=== PATIENT | female | born 1980 | race Caucasian/White ===

== ENCOUNTER 2021-10-31 17:01 | Inpatient (IN) | payer OTHER, SELFPAY ==
[2021-10-31 17:31] VITALS: BMI 40.1
[2021-10-31 18:24] LABS: #Eosinphils 0.1 10x3/uL (0.0-0.5); #Monocytes 1.1 10x3/uL (0.0-1.1); #Neutrophils 7.8 10x3/uL (1.5-8.4); %Basophils 0.3 % (0.0-2.0); %Lymphocytes 18.2 % (18.0-47.0); %Monocytes 9.7 % (0.0-10.0); %Neutrophils 70.2 % (40.0-75.0); Hemoglobin 12.3 g/dL (12.0-15.5); Mean Corpuscular Volume 91.2 fl (81.6-98.3); Mean Platelet Volume 10.2 fl (7.4-10.4); Platelet Count 236 10x3/uL (150-450); RBC Distribution Width 12.8 % (11.5-14.5); Red Blood Cell (RBC) Count 3.97 10x6/uL (3.90-5.03); White Blood Cell (WBC) Count 11.1 10x3/uL (3.5-10.5)
[2021-10-31 18:38] LABS: ALT (SGPT) 8 U/L (8-55); AST (SGOT) 10 U/L (5-34); Albumin 3.2 g/dL (3.5-5.0); Alkaline Phosphatase 88 U/L (40-110); Anion Gap 12 mmol/L (10-20); BUN (Urea Nitrogen) 8 mg/dL (7.0-18.7); Bilirubin, Total 0.2 mg/dL (0.2-1.2); Calc. Creatinine Clearance 198 mL/min (70-130); Calcium 9.5 mg/dL (7.8-10.44); Carbon Dioxide 19 mmol/L (22-29); Chloride 109 mmol/L (98-107); Estimated GFR 105; Globulin 3.2 g/dL (2.4-3.5); Glucose 79 mg/dL (70-105); Potassium 4.4 mmol/L (3.5-5.1); Protein, Total 6.4 g/dL (6.0-8.3); Sodium 136 mmol/L (136-145)
[2021-10-31 18:41] LABS: Creatinine, Urine 160.21 mg/dL (47-110)
[2021-10-31] MEDS ORDERED: Butorphanol Tartrate 1 MG/ML VIAL SLOW IVP PRN (19:28)
[2021-10-31] MEDS ORDERED: hydrALAZINE 20 MG/ML VIAL SLOW IVP PRN ×3 (19:28→22:32)
[2021-10-31] MEDS ORDERED: Promethazine HCl 25 MG/ML VIAL IM PRN ×2 (19:28→23:33)
[2021-10-31] MEDS ORDERED: Ondansetron PF 4 MG/2 ML Vial IVP PRN ×2 (19:28→23:33)
[2021-10-31] MEDS ORDERED: Acetaminophen 500 MG TAB PO PRN (19:30)
[2021-10-31] MEDS ORDERED: Betamet Acet/Betamet Na Ph 30 MG/5 ML VIAL IM SCH (19:30)
[2021-10-31] MEDS: hydrALAZINE 20 MG/ML VIAL SLOW IVP PRN ×2 (20:51→21:33)
[2021-10-31] MEDS ORDERED: Famotidine/PF 20 mg/2ml Vial SLOW IVP SCH (21:00)
[2021-10-31] MEDS ORDERED: Magnesium Sulfate 20 gm/500 ml 20 GM/500 ML BAG ONE (21:19)
[2021-10-31] MEDS ORDERED: CEFAZOLIN 2 GM VIAL ONE (21:28)
[2021-10-31] MEDS ORDERED: CEFAZOLIN 2 GM in Sodium Chloride 0.9% 100 ML IVPB SCH (21:30)
[2021-10-31] MEDS ORDERED: Famotidine/PF 20 mg/2ml Vial ONE (21:33)
[2021-10-31] MEDS ORDERED: Calcium Gluc 4.6 MEQ/10 ML (100 MG/ML) SLOW IVP PRN (21:34)
[2021-10-31] MEDS ORDERED: Lorazepam 2 MG/ML VIAL SLOW IVP PRN (21:34)
[2021-10-31] MEDS ORDERED: Labetalol HCl 100 MG/20 ML VIAL SLOW IVP PRN ×2 (21:34)
[2021-10-31] MEDS ORDERED: Misoprostol 200 MCG TAB PR PRN (21:39)
[2021-10-31] MEDS ORDERED: Fentanyl 100 MCG/2 ML VIAL ONE (21:40)
[2021-10-31] MEDS ORDERED: Morphine PF 10 MG/10 ML VIAL ONE (21:40)
[2021-10-31] MEDS ORDERED: Magnesium Sulfate 4 GM in Sodium Chloride 0.9% 250 ML 250 ML IVPB SCH (21:45)
[2021-10-31] MEDS ORDERED: Magnesium Sulfate 20 GM/WATER 500 ML BAG IVPB SCH (21:45)
[2021-10-31] MEDS ORDERED: NS w/ Oxytocin 30 units 500 ML IV SCH (21:45)
[2021-10-31] MEDS ORDERED: PROPOFOL 0 ML ONE (21:48)
[2021-10-31] MEDS ORDERED: ePHEDrine Sulfate 50 MG/10 ML VIAL ONE (21:49)
[2021-10-31 22:28] LABS: Syphilis Antibody Nonreactive (Nonreactive); Syphilis Antibody Index 0.05 S/CO (<1.00 Non-Reactive)
[2021-10-31 22:29] LABS: HBSAg Index 0.18 S/CO (0-0.99); Hep B Surf Ag Non-Reactive S/CO (NonReactive)
[2021-10-31] MEDS ORDERED: Dexamethasone 4 mg/ml Vial ONE (22:29)
[2021-10-31] MEDS ORDERED: PHENYLEPHRINE-NS 100 MCG/ML 10 ML SYRINGE ONE (22:29)
[2021-10-31] MEDS ORDERED: Ondansetron PF 4 MG/2 ML Vial ONE (22:29)
[2021-10-31] MEDS ORDERED: Oxytocin 10 UNITS/ML VIAL ONE (22:30)
[2021-10-31] MEDS ORDERED: Boostrix 0.5 ML (Tdap) VIAL (>/=7 yrs of age) IM ONE (22:32)
[2021-10-31] MEDS ORDERED: Lanolin Ointment 7 GM TUBE TOP PRN (22:32)
[2021-10-31] MEDS ORDERED: HYDROcodone/Acetaminophen 5/325 mg Tablet PO PRN (22:32)
[2021-10-31 23:14] LABS: Critical Notified By: CP.PH
[2021-10-31 23:16] LABS: Critical Notified By: CP.PH; pH (Cord, venous) 7.322 (7.250-7.350)
[2021-10-31] MEDS ORDERED: Naloxone HCl 0.4 mg/ml Vial IV PRN (23:33)
[2021-10-31] MEDS ORDERED: Moisturizing Cream (Eucerin) 113 GM JAR TOP PRN (23:33)
[2021-10-31] MEDS ORDERED: Ondansetron HCl/PF 4 MG/2 ML Vial IVP PRN (23:33)
[2021-10-31] MEDS ORDERED: diphenhydrAMINE 50 MG/ML VIAL IVP PRN (23:33)
[2021-10-31] MEDS ORDERED: Meperidine HCl/PF 25 MG/ML VIAL SLOW IVP PRN (23:33)
[2021-10-31] MEDS ORDERED: Fentanyl 100 MCG/2 ML VIAL SLOW IVP PRN (23:33)
[2021-10-31] MEDS ORDERED: HYDROmorphone 2 MG/ML VIAL SLOW IVP PRN (23:33)
[2021-10-31] MEDS ORDERED: Promethazine HCl 25 MG SUPP PR PRN (23:33)
[2021-10-31] MEDS ORDERED: Naloxone HCl 0.4 mg/ml Vial IVP PRN ×2 (23:33)
[2021-10-31] MEDS ORDERED: Communication Order-Pharmacy FS SCH (23:45)
[2021-10-31] MEDS ORDERED: Ketorolac Tromethamine 30 MG/ML VIAL IVP SCH (23:45)
[2021-11-01] MEDS: Ketorolac Tromethamine 30 MG/ML VIAL IVP PRN ×2 (01:27→08:15)
[2021-11-01 01:35] LABS: SARS-CoV-2 NAA Rapid Test Not Detected (NotDetected)
[2021-11-01] MEDS ORDERED: Fentanyl 100 MCG/2 ML VIAL ONE ×2 (02:07→05:04)
[2021-11-01] MEDS ORDERED: Fentanyl 100 MCG/2 ML VIAL SLOW IVP PRN (04:50)
[2021-11-01] MEDS ORDERED: Ondansetron HCl/PF 4 MG/2 ML Vial IVP PRN (04:50)
[2021-11-01] MEDS ORDERED: HYDROmorphone 2 MG/ML VIAL SLOW IVP PRN (04:50)
[2021-11-01] MEDS ORDERED: Meperidine HCl/PF 25 MG/ML VIAL SLOW IVP PRN (04:50)
[2021-11-01 05:04] LABS: Hemoglobin 12.8 g/dL (12.0-15.5); Mean Corpuscular HGB CONC 35.2 g/dL (32.0-36.0); Mean Corpuscular Hemoglobin 32.1 pg (27.0-33.0); Mean Corpuscular Volume 91.2 fl (81.6-98.3); Mean Platelet Volume 10.3 fl (7.4-10.4); Platelet Count 250 10x3/uL (150-450); RBC Distribution Width 12.8 % (11.5-14.5); Red Blood Cell (RBC) Count 3.99 10x6/uL (3.90-5.03); White Blood Cell (WBC) Count 24.1 10x3/uL (3.5-10.5)
[2021-11-01] MEDS ORDERED: Ibuprofen 800 MG TAB PO SCH (06:00)
[2021-11-01] MEDS ORDERED: Magnesium Sulfate 20 gm/500 ml 20 GM/500 ML BAG ONE (07:33)
[2021-11-01] MEDS ORDERED: Magnesium Sulfate 20 gm/500 ml 20 GM/500 ML BAG IVPB PRN (08:15)
[2021-11-01] MEDS: Labetalol HCl 200 MG TAB PO SCH ×2 (08:15→22:03)
[2021-11-01] MEDS ORDERED: Lorazepam 2 MG/ML VIAL SLOW IVP PRN (11:45)
[2021-11-01] MEDS ORDERED: HYDROcodone/Acetaminophen 5/325 mg Tablet PO PRN (11:45)
[2021-11-01] MEDS ORDERED: Butorphanol Tartrate 1 MG/ML VIAL SLOW IVP PRN (11:45)
[2021-11-01] MEDS: HYDROcodone/Acetaminophen 5/325 mg Tablet PO PRN ×3 (12:48→22:01)
[2021-11-01] MEDS: Simethicone Chewable 80 MG TAB PO PRN ×2 (12:55→17:34)
[2021-11-01] MEDS: Docusate 100 MG CAP PO SCH ×2 (15:53→22:02)
[2021-11-01] MEDS: Prenatal Vitamin 1 TAB PO SCH (15:53)
[2021-11-01] MEDS: Ferrous Sulfate 325 MG TAB PO SCH ×2 (15:53→22:03)
[2021-11-02] MEDS: Simethicone Chewable 80 MG TAB PO PRN ×2 (03:42→08:41)
[2021-11-02] MEDS: HYDROcodone/Acetaminophen 5/325 mg Tablet PO PRN ×4 (03:42→21:30)
[2021-11-02] MEDS: Ibuprofen 800 MG TAB PO SCH ×3 (05:53→21:30)
[2021-11-02] MEDS: Prenatal Vitamin 1 TAB PO SCH (08:36)
[2021-11-02] MEDS: Labetalol HCl 200 MG TAB PO SCH ×2 (08:36→21:29)
[2021-11-02] MEDS: Docusate 100 MG CAP PO SCH ×2 (08:37→21:29)
[2021-11-02] MEDS: Ferrous Sulfate 325 MG TAB PO SCH ×2 (11:54→23:14)
[2021-11-03] MEDS: HYDROcodone/Acetaminophen 5/325 mg Tablet PO PRN ×2 (05:24→12:07)
[2021-11-03] MEDS: Ibuprofen 800 MG TAB PO SCH (05:25)
[2021-11-03 09:10] VITALS: BP 137/72; TEMP 98.1
[2021-11-03] MEDS: Docusate 100 MG CAP PO SCH (09:54)
[2021-11-03] MEDS: Prenatal Vitamin 1 TAB PO SCH (09:54)
[2021-11-03] MEDS: Ferrous Sulfate 325 MG TAB PO SCH (10:33)
== END 2021-11-03 15:45 | disposition home or self-care (01) | DRG 785 ==
LOC: CSHLD/OP 17:01 → CSHLD 21:34 → CSHPP 11-01 23:40
PROVIDERS: ADMIT Obstetrics & Gynecology; ATTEND Obstetrics & Gynecology
PROC: 10D00Z1 Extraction of Products of Conception, Low, Open Approach (ICD-10-PCS; principal; 2021-10-31)
PROC: 0UT70ZZ Resection of Bilateral Fallopian Tubes, Open Approach (ICD-10-PCS; 2021-10-31)
DX: O14.14 Severe pre-eclampsia complicating childbirth (principal); Z3A.35 35 weeks gestation of pregnancy; Z37.0 Single live birth; O26.893 Other specified pregnancy related conditions, third trimester; O24.420 Gestational diabetes mellitus in childbirth, diet controlled; O76 Abnormality in fetal heart rate and rhythm complicating labor and delivery; O34.211 Maternal care for low transverse scar from previous cesarean delivery; Z90.49 Acquired absence of other specified parts of digestive tract; Z67.11 Type A blood, Rh negative; Z80.3 Family history of malignant neoplasm of breast; Z80.49 Family history of malignant neoplasm of other genital organs
CPT/HCPCS: 36415; 51702; 76819; 80053; 82570; 82805; 84156; 85025; 85027; 86780; 86850; 86900; 86901; 87340; 88302; 99285; J0360; J0690; J0702; J1100; J1885; J2274; J2405; J2550; J2590; J2704; J3010; J3475; S0028; U0002

== ENCOUNTER 2021-11-14 15:16 | Emergency (ER) | payer OTHER ==
[2021-11-14] MEDS ORDERED: Enoxaparin Sodium 100 MG/ML SYRINGE ONE (16:06)
[2021-11-14 16:13] LABS: #Eosinphils 0.1 10x3/uL (0.0-0.5); #Monocytes 0.7 10x3/uL (0.0-1.1); #Neutrophils 6.2 10x3/uL (1.5-8.4); %Basophils 0.4 % (0.0-2.0); %Eosinophils 1.5 % (0.0-6.0); %Neutrophils 66.8 % (40.0-75.0); Hemoglobin 11.7 g/dL (12.0-15.5); Mean Corpuscular HGB CONC 33.6 g/dL (32.0-36.0); Mean Corpuscular Hemoglobin 31.2 pg (27.0-33.0); Mean Corpuscular Volume 92.8 fl (81.6-98.3); Mean Platelet Volume 9.2 fl (7.4-10.4); Platelet Count 323 10x3/uL (150-450); RBC Distribution Width 12.2 % (11.5-14.5); Red Blood Cell (RBC) Count 3.75 10x6/uL (3.90-5.03); White Blood Cell (WBC) Count 9.2 10x3/uL (3.5-10.5)
[2021-11-14 16:27] LABS: ALT (SGPT) 19 U/L (8-55); AST (SGOT) 12 U/L (5-34); Albumin 3.9 g/dL (3.5-5.0); Alkaline Phosphatase 65 U/L (40-110); Anion Gap 13 mmol/L (10-20); BUN (Urea Nitrogen) 12 mg/dL (7.0-18.7); Bilirubin, Total 0.6 mg/dL (0.2-1.2); Calc. Creatinine Clearance 0 mL/min (70-130); Calcium 8.9 mg/dL (7.8-10.44); Carbon Dioxide 26 mmol/L (22-29); Chloride 104 mmol/L (98-107); Estimated GFR 90; Globulin 2.7 g/dL (2.4-3.5); Glucose 85 mg/dL (70-105); Potassium 4.1 mmol/L (3.5-5.1); Protein, Total 6.6 g/dL (6.0-8.3); Sodium 139 mmol/L (136-145)
[2021-11-14 16:33] LABS: Bilirubin Neg (Negative); Blood, Urine 150 (Negative); Glucose, Urine (Dipstick) Normal (Negative); Ketone, Urine Negative (Negative); Leukocyte 500 (Negative); Nitrite Positive (Negative); Protein, Urine (Dipstick) 15 mg/dl (Neg-Trace); Specific Gravity, Urine 1.015 (1.002-1.036); Urobilinogen Normal mg/dL (Less than 2)
[2021-11-14 17:10] LABS: Renal Epithelial 0-3 HPF (None Seen); Squamous Epithelial 0-3 HPF (0-3); WBC/HPF Greater than 50 HPF (0-3)
[2021-11-14 17:11] LABS: Bacteria/HPF 3+ HPF (None Seen)
== END 2021-11-14 17:36 | disposition home or self-care (01) ==
LOC: CSHERS 15:16
DX: I82.812 Embolism and thrombosis of superficial veins of left lower extremity (principal); N39.0 Urinary tract infection, site not specified
CPT/HCPCS: 80053; 81003; 81015; 85025; 85379; 93005; 96372; J1650

== ENCOUNTER 2022-06-08 08:46 | Day surgery (SDC) | payer OTHER ==
[2022-06-06 10:40] VITALS: BMI 40.1
[2022-06-06 15:20] LABS: Hemoglobin 13.3 g/dL (12.0-15.5); Mean Corpuscular HGB CONC 33.6 g/dL (32.0-36.0); Mean Corpuscular Hemoglobin 29.2 pg (27.0-33.0); Mean Platelet Volume 10.5 fl (7.4-10.4); Platelet Count 336 10x3/uL (150-450); RBC Distribution Width 13.8 % (11.5-14.5); Red Blood Cell (RBC) Count 4.55 10x6/uL (3.90-5.03); White Blood Cell (WBC) Count 7.2 10x3/uL (3.5-10.5)
[2022-06-06 16:05] LABS: BHCG - Serum Negative (NEGATIVE); Pregs Control Background? CLEAR/WHITE (CLR/WHITE); Pregs Control Bar Appear? YES (CONTROL BAR)
[~2022-06-08 08:46] MED LIST: PROPOFOL 20 ML ONE
[2022-06-08] MEDS ORDERED: CeleCOXIB 100 MG CAP ONE (08:52)
[2022-06-08] MEDS ORDERED: Gabapentin 300 MG CAP ONE (08:53)
[2022-06-08] MEDS ORDERED: Famotidine/PF 20 mg/2ml Vial ONE (08:53)
[2022-06-08] MEDS ORDERED: Fentanyl 100 MCG/2 ML VIAL ONE ×4 (09:51→13:40)
[2022-06-08] MEDS ORDERED: Bupivacaine HCl 0.5%/Epinephrine 1:200,000/PF 30 ml Vial ONE (09:52)
[2022-06-08] MEDS ORDERED: Midazolam HCl 2 mg/2 ml Vial ONE (09:55)
[2022-06-08] MEDS ORDERED: Scopolamine 1.5 mg/72 hour Patch ONE (09:56)
[2022-06-08] MEDS ORDERED: CEFAZOLIN 2 GM VIAL ONE (10:25)
[2022-06-08] MEDS ORDERED: ePHEDrine Sulfate 50 MG/10 ML VIAL ONE (11:20)
[2022-06-08] MEDS ORDERED: Dexamethasone 4 mg/ml Vial ONE (11:29)
[2022-06-08] MEDS ORDERED: Ondansetron PF 4 MG/2 ML Vial ONE (11:29)
[2022-06-08] MEDS ORDERED: Glycopyrrolate 0.2 MG/ML 5 ML SYRINGE ONE (12:45)
[2022-06-08] MEDS ORDERED: Ondansetron PF 4 MG/2 ML Vial IVP PRN (12:55)
[2022-06-08] MEDS ORDERED: Promethazine HCl 25 MG/ML VIAL IM PRN (12:55)
[2022-06-08] MEDS ORDERED: Zolpidem Tartrate 5 MG TAB PO PRN (12:55)
[2022-06-08] MEDS ORDERED: diphenhydrAMINE 25 MG CAP PO PRN (12:55)
[2022-06-08] MEDS ORDERED: Bisacodyl 10 MG SUPP PR PRN (12:55)
[2022-06-08] MEDS ORDERED: Fentanyl 100 MCG/2 ML VIAL SLOW IVP PRN (12:55)
[2022-06-08] MEDS ORDERED: traMADol HCl 50 MG TAB PO PRN (12:55)
[2022-06-08] MEDS ORDERED: Simethicone Chewable 80 MG TAB PO PRN (12:55)
[2022-06-08] MEDS ORDERED: HYDROcodone/Acetaminophen 5/325 mg Tablet PO PRN (12:55)
[2022-06-08] MEDS ORDERED: Ketorolac Tromethamine 30 MG/ML VIAL ONE (13:22)
[2022-06-08] MEDS: HYDROcodone/Acetaminophen 5/325 mg Tablet PO PRN ×2 (15:58→20:32)
[2022-06-08] MEDS: Ketorolac Tromethamine 30 MG/ML VIAL IVP SCH (18:25)
[2022-06-08] MEDS: Sodium Chloride 0.9% 1,000 ML IV SCH ×2 (18:45→19:11)
[2022-06-09] MEDS: HYDROcodone/Acetaminophen 5/325 mg Tablet PO PRN ×2 (03:54→08:18)
[2022-06-09 04:16] LABS: Hemoglobin 11.3 g/dL (12.0-15.5); Mean Corpuscular Volume 87.7 fl (81.6-98.3); Platelet Count 286 10x3/uL (150-450)
[2022-06-09] MEDS: Ketorolac Tromethamine 30 MG/ML VIAL IVP SCH ×2 (06:49)
[2022-06-09 07:26] VITALS: BP 120/74; TEMP 99
[2022-06-09] MEDS: Sodium Chloride 0.9% 1,000 ML IV SCH (09:22)
[2022-06-13] MEDS ORDERED: Ibuprofen 800 MG TAB PO SCH (22:00)
== END 2022-06-09 10:55 | disposition home or self-care (01) ==
LOC: CSHSDC 08:46 → CSHPP 14:16 → CSHSDC 06-09 10:55
PROVIDERS: ATTEND Obstetrics & Gynecology
PROC: 0UT94ZZ Resection of Uterus, Percutaneous Endoscopic Approach (ICD-10-PCS; principal; 2022-06-08)
PROC: 0UT74ZZ Resection of Bilateral Fallopian Tubes, Percutaneous Endoscopic Approach (ICD-10-PCS; principal; 2022-06-08)
DX: N87.9 Dysplasia of cervix uteri, unspecified (principal); N80.03 Adenomyosis of the uterus; D25.9 Leiomyoma of uterus, unspecified; N73.6 Female pelvic peritoneal adhesions (postinfective); N72 Inflammatory disease of cervix uteri; N88.8 Other specified noninflammatory disorders of cervix uteri; I10 Essential (primary) hypertension; Z86.718 Personal history of other venous thrombosis and embolism; Z90.49 Acquired absence of other specified parts of digestive tract; Z86.2 Personal history of diseases of the blood and blood-forming organs and certain disorders involving the immune mechanism
CPT/HCPCS: 36415; 84703; 85027; 86850; 86900; 86901; 88307; C9250; J1100; J1650; J1885; J2250; J2405; J2704; J3010; J7050; S0028